=== PATIENT | male | born 1965 | race Caucasian/White ===

== ENCOUNTER 2024-06-17 02:39 | Emergency (ER) | payer MEDICARE, MEDICAID, SELFPAY ==
[2024-06-17] VITALS (43 sets, daily range): BP systolic 131–177; BP diastolic 74–99; PULSE 57–78; RESP 13–32; TEMP 37; O2SAT 89–99
--- NOTE | 2024-06-17 02:30 | DI.RAD_ITS ---
Exam(s) XR PORTABLE CHEST AP EXAM: XR PORTABLE CHEST AP CLINICAL HISTORY: short of breath TECHNIQUE: 2D digital imaging was performed. COMPARISON: No exams were available for comparison FINDINGS: LUNGS: Bilateral interstitial infiltrates, greater at the lung bases. No pleural abnormality seen. HEART: Mildly enlarged. AORTA: Normal diameter. BONES: Unremarkable for age. Soft tissues: Unremarkable. IMPRESSION: Diffuse bilateral interstitial infiltrates greater at the lung bases, suspicious for CHF. DATA REPOSITORY: RADIATION DOSE DELIVERED:
--- NOTE | 2024-06-17 02:30 | RT.EKG_ITS ---
APPROVED REPORT Exam: Resting ECG Reason for Exam: sudden onset sob Patient Location: E HR:72 bpm ECG Measurements Heart Rate 72 AXIS IA 164 P 47 QRSd 114 QRS 36 QT 421 T -27 QTc 461 Conclusion Sinus rhythm...normal P axis, V-rate 60- 99 Supraventricular bigeminy...bigeminy string>4 w/ SV complexes appropriate intervals no ST segment or T wave abnormalities to suggest occlusive [place]
--- NOTE | 2024-06-17 02:30 | DI.CT_ITS ---
Exam(s) CT CHEST PE CTA EXAM: CT CHEST PE CTA CLINICAL HISTORY: short of breath. TECHNIQUE: Imaging Protocol: Axial CT angiography was performed with multi-slice acquisition and mu lti-planar reconstructions as well as axial, coronal and sagittal MIP reconstructions. CONTRAST MATERIAL: Intravenous: Omnipaque 350 Contrast volume:100 ml COMPARISON: CR,XR XR PORTABLE CHEST AP from 06/17/2024 FINDINGS: Pulmonary Arteries: No evidence of filling defect to suggest pulmonary emboli. Tracheobronchial tree: No mucous plugging. Mediastinum and Flores: No dominant adenopathy or fluid collection. Pulmonary parenchyma: Bilateral diffuse in interlobular septal thickening consistent with pulmonary e liberty. No consolidation or dominant measurable mass. Pleura: Small bilateral pleural effusions, right greater than left. Heart: The heart is mildly dilated. Severe coronary artery calcifications are seen. Aorta: Thoracic aorta non-dilated. No dissection. Upper abdomen: Cirrhotic appearing liver. Spleen not enlarged. No ascites. Bones: Unremarkable for age. Tubes, Catheters, and Lines: None Soft tissues: Unremarkable. IMPRESSION: No evidence of pulmonary embolism. Findings consistent with CHF. Cirrhotic appearing liver. RADIATION DOSE DELIVERED: 234.55mGy.cm Total DLP DATA REPOSITORY: All CT scans at this facility are submitted to the National Radiology Data Registry (NRDR) Dose Index Registry (DIR) with the [employer] ([employer]). RADIATION OPTIMIZATION: All CT scans at this facility use at least one of these dose optimization te chniques: automated exposure control; mA and/or kV adjustment per patient size (includes targeted exa ms where dose is matched to clinical indication); or iterative reconstruction.
--- NOTE | 2024-06-17 02:45 | ED.GENADUL_ITS ---
Discharge Plan Disposition Patient Disposition: Transfer-Acute Inpatient Care Specific Acute Inpt Facility: [facility] Condition: Serious Discharge Details Clinical Impression: Non-ST elevation myocardial infarction (NSTEMI), Hypertension, Breath shortness Primary Care Provider: Pati Shahid ED Provider: Lupe Wells Home Meds and New Rx's Prescriptions: No Action simvastatin 20 mg tablet 20 mg PO DAILY docusate sodium 50 mg capsule 50 mg PO DAILY Eliquis 5 mg tablet 5 mg PO BID atenolol 50 mg tablet 50 mg PO BID meloxicam 7.5 mg tablet 7.5 mg PO DAILY tamsulosin 0.4 mg capsule 0.4 mg PO DAILY buspirone 15 mg tablet 15 mg PO BID sertraline 100 mg tablet 100 mg PO BID HPI General Mode of arrival: EMS . Date/Time Provider Initiated Documentation: 06/17/24 02:44 . Limitations to Documentation: no limitations . Information obtained by: patient, EMS and old records reviewed . HPI Narrative: 59yo M with T2DM, CAD, HTN, POP, afib, HLD, presenting for acute shortness of breath. [employer] normal yesterday including when he went to sleep. Awakened at about 0030 with severe shortness of breath. Denies chest pain, palpitations, or presyncope/syncope. No hypoxia for EMS. Pt described sensation as someone sitting on my chest. Does feel like it has gotten somewhat better over the past hour. Never felt anything like this before. Otherwise in his usual state of health with no fevers, chills, rash, nasuea, vomiting, abdominal pain, nausea, vomiting, neck pain, back pain, or other concerns. Related Data Home Medications ?Medication ?Instructions ?Recorded ?Confirmed apixaban 5 mg tablet (Eliquis) 5 mg PO BID 04/10/24 06/17/24 atenolol 50 mg tablet 50 mg PO BID 04/10/24 06/17/24 buspirone 15 mg tablet 15 mg PO BID 04/10/24 06/17/24 docusate sodium 50 mg capsule 50 mg PO DAILY 04/10/24 06/17/24 meloxicam 7.5 mg tablet 7.5 mg PO DAILY 04/10/24 06/17/24 sertraline 100 mg tablet 100 mg PO BID 04/10/24 06/17/24 simvastatin 20 mg tablet 20 mg PO DAILY 04/10/24 06/17/24 tamsulosin 0.4 mg capsule 0.4 mg PO DAILY 04/10/24 06/17/24 Allergies Allergy/AdvReac Type Severity Reaction Status Date / Time bupropion (From Wellbutrin) Allergy Severe Seizure Verified 06/17/24 02:49 aripiprazole (From Abilify) Allergy Unknown Unknown Verified 06/17/24 02:49 penicillin V potassium Allergy Unknown black outs Uncoded 06/17/24 02:49 General Stated Complaint: SOB/SuddenOnset EBONY: 3 Review of Systems Narrative: see HPI Exam Narrative Exam Narrative: General: Alert, dyspneic Head: Normocephalic, atraumatic Neck: Trachea midline, ?Neck supple. ENT: ?MMM.? Cardiac: ?Irregular, no murmurs appreciated Resp: Tachypneic. CTAB. Abd: ?Soft, non-distended, nontender : ?No suprapubic tenderness. Extremities: ?No deformities.? No peripheral edema. Neurologic: GCS 15. ? Moves all extremities freely against gravity Course Vital Signs Vital signs: Vital Signs Pulse 74 06/17/24 02:42 Respiratory Rate 20 06/17/24 02:42 Blood Pressure 177/99 H 06/17/24 02:42 Pulse Oximetry 94 06/17/24 02:42 Pulse 74 06/17/24 02:42 Respiratory Rate 20 06/17/24 02:42 Blood Pressure 177/99 H 06/17/24 02:42 Blood Pressure Position Supine 06/17/24 02:42 Pulse Oximetry 94 06/17/24 02:42 Oxygen Delivery Method Room Air 06/17/24 02:42 Oxygen Flow Rate 0 06/17/24 02:42 Pain Level 0 06/17/24 02:42 Medical Decision Making 59yo M with T2DM, CAD, HTN, POP, afib, HLD, presenting for acute shortness of breath. Awakened at about 0030 with severe shortness of breath, described someone sitting on my chest. Does feel like it has gotten somewhat better over the past hour. Hypertensive and tachypneic on arrival, dyspneic on exam with clear lungs. EKG on arrival SR, intermittent bigeminy, appropriate intervals, no ST segment or T wave abnormalities to suggest occlusive GA. High level of suspicion for acute coronary syndrome; will treat initially with 324 of ASA, SL nitro, while awaiting labs and imaging. -Symptoms improved after two nitro, resolved entirely after three. -CXR independently reviewed; some pulmonary edema on my view, agree with radiology read below. -Labs reviewed as below, CBC reassuring with no leukocytosis or anemia, CMP with no actionable abnormalities, VBG reassuring, initial troponin elevated at 196 and BNP elevated at 1103. Given heparin bolus and started on gtt for T1 NSTEMI -CT chest independently reviewed; no large saddle embolus on my view, radiology read below. Discussed with [facility] cardiology; pt accepted under Dr. Morrison for urgent (not emergent) cath anticipated later today. Will add 600mg clopidrogel and 80mg atorvastatin. Awaiting transport. Repeat EKG reassuring, NSR, no ST segment or T wave abnormalities to suggest occlusive GA. Troponin trended; 196 -> 162 -> 187. Patient remains chest pain/pressure free with no further respiratory distress. [place] expected for transport at ~0730. Oncoming physician will be made aware of patient; a follow-on note will only be written if there is a change in patient status or condition. Imaging Data Radiologic Study: Imaging: X-Ray Radiologist's impression: IMPRESSION: Bilateral interstitial opacities suspicious for edema. Denser opacities at the lung bases may reflect edema, atelectasis, infection. Follow-up as clinically warranted. Radiologic Study #2: Imaging: CT Scan Radiologist's impression: IMPRESSION: 1. No pulmonary embolus is appreciated. 2. Interstitial thickening and ground-glass opacities in both lungs consistent with edema. 3. Bilateral pleural effusions. 4. Cirrhosis. 5. Stranding in the pericholecystic fat suggesting cholecystitis. This may be further evaluated with right upper quadrant ultrasound if clinically warranted. 6. Additional findings as above. Lab Data Lab results reviewed: Yes I reviewed the patient's lab results. Labs: Laboratory Tests Range/Units 06/17/24 06/17/24 02:55 03:45 WBC (4.4-10.8) 10^3/uL 7.36 RBC (4.36-5.78) 10^6/uL 4.54 Hgb (13.5-17.5) g/dL 13.7 Hct (40.0-50.0) % 41.7 MCV (80-95) fL 92 MCH (27.0-33.0) pg 30.2 MCHC (32.0-36.0) % 32.9 RDW (11.8-14.1) % 14.8 H Plt Count (130-400) 10^3/uL 226 MPV (8.0-11.0) fL 10.0 Immature Gran % % 0.3 Neutrophils % % 68.2 Lymphocytes % % 20.2 Monocytes % % 7.6 Eosinophils % % 2.9 Basophils % % 0.8 Nucleated RBC % (0.0-0.3) % 0.0 Absolute Neutrophils (1.2-6.7) 10^3/uL 5.02 Absolute Lymphocytes (1.2-3.4) 10^3/uL 1.49 Absolute Monocytes (0.1-0.8) 10^3/uL 0.56 Absolute Eosinophils (0.0-0.7) 10^3/uL 0.21 Absolute Basophils (0.0-0.2) 10^3/uL 0.06 PT (9.1-11.1) sec 11.0 INR (0.9-1.1) 1.1 APTT (23.6-32.8) sec 25.7 VBG pH (7.31-7.41) 7.36 VBG pCO2 (41-51) mmHg 47 VBG pO2 mmHg 26 VBG HCO3 (23-28) mmol/L 26 VBG Total CO2 (24-29) mmol/L 24 VBG O2 Saturation % 41 VBG Base Excess (-2-3) mmol/L 1 Sodium (136-145) mmol/L 134 L Potassium (3.5-5.1) mmol/L 4.3 Chloride (98-107) mmol/L 100 Carbon Dioxide (21.0-32.0) mmol/L 27.5 Anion Gap (3-11) mmol/L 6.5 BUN (7-18) mg/dL 20 H Creatinine (0.70-1.30) mg/dL 1.2 Est GFR (CKD-EPI 2020) (mL/min/1.73m2) 69.23 Glucose (74-106) mg/dL 105 Calcium (8.5-10.1) mg/dL 9.2 Magnesium (1.8-2.4) mg/dL 1.9 Total Bilirubin (0.2-1.0) mg/dL 0.39 AST (15-37) U/L 34 ALT (16-63) U/L 33 Alkaline Phosphatase (46-116) U/L 77 Troponin I High Sens (4-76) ng/L 196 H* 162 H* NT-Pro-B Natriuret Pep (<300) pg/mL 1103 H Total Protein (6.4-8.2) g/dL 7.2 Albumin (3.4-5.0) g/dL 3.6 Quality:SDOH Health Related Social Needs: No Data to Display Critical Care Time Critical Care Time Critical Care Time: Yes Total Critical Care Time: 32 Attestation: Due to a high probability of clinically significant, life threatening deterioration, the patient required my highest level of preparedness to intervene emergently and I personally spent this critical care time directly and personally managing the patient. This critical care time included obtaining a history; examining the patient; pulse oximetry; ordering and review of studies; arranging urgent treatment with development of a management plan; evaluation of patient's response to treatment; frequent reassessment; and, discussions with other providers. This critical care time was performed to assess and manage the high probability of imminent, life-threatening deterioration that could result in multi-organ failure. It was exclusive of separately billable procedures and treating other patients? PFSH All Active Problems (Updated 06/17/24 @ 06:35 by Lupe Wells MD) Breath shortness (Acute) Hypertension (Chronic) Non-ST elevation myocardial infarction (NSTEMI) (Acute) Benign prostatic hyperplasia (Chronic) Type 2 diabetes mellitus treated without insulin (Acute) Obesity (Chronic) Diabetic neuropathy (Acute) Coronary artery disease (Chronic) Decreased vision (Acute) Peripheral neuropathic pain (Acute) AC joint arthropathy (Acute) Primary hypertension (Acute) Primary open angle glaucoma (POAG) of left eye, severe stage (Acute) Osteoarthritis of right hip (Acute) Cardiomyopathy (Acute) Social anxiety disorder (Acute) POP (obstructive sleep apnea) (Chronic) Anxiety (Chronic) Atrial fibrillation (Chronic) Depression (Chronic) ASCVD (arteriosclerotic cardiovascular disease) (Acute) Hyperlipidemia (Acute) Claustrophobia (Acute) Medical History (Updated 06/17/24 @ 06:35 by Lupe Wells MD) Cellulitis Dermatitis Hx of diabetic foot ulcer Penile lesion Provoked seizure Febrile Hx of atrial flutter Depression, psychotic Surgical History (Updated 04/09/24 @ 12:03 by Analy Vázquez) Hx of cardiac cath with 2 stents Hx of total knee arthroplasty Left Family History (Updated 04/09/24 @ 15:02 by Analy Vázquez) Mother No problems noted. Father No problems noted. Brother No problems noted. Maternal Grandmother No problems noted. Maternal Grandfather No problems noted. Paternal Grandmother No problems noted. Paternal Grandfather No problems noted. Social History (Updated 04/09/24 @ 14:59 by Analy Vázquez) Smoking/Tobacco Use Status: Former Tobacco Use Smokeless tobacco user: chewing tobacco Smoking risk assessment performed?: Yes Alcohol Intake: current Alcohol Intake frequency: a few times a month Alcohol type: beer Drug use: Daily Substance use type: marijuana Adopted: No Caregiver/Support person: No Household members: none Housing: apartment Number of Children: 3 number of grandchildren: 7 Communication Needs: Hard of Hearing Education Level: high school Do you need help understanding health information?: Often current occupation: Disabled Sexually active: No Do you think of yourself as: straight/heterosexual Current gender identity: male What is your relationship status?: How often do you talk on the phone with friends or family?: three or more times per week How often do you get together with friends or relatives?: never How often do you attend amish or church services?: decline to answer Do you belong to any clubs or organized social groups?: no Panel score (0-1 are the most socially isolated patients): 1 What type of physical activity do you participate in: walking Duration: 45-60 minutes/day Frequency: 3-4 times per week Vijaya/Jewish: None Special vijaya needs: No Seatbelt use: always Drive intox or ride w/intox 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
[2024-06-17] MEDS: Aspirin 81 MG CHEW 324 MG CH (02:57)
[2024-06-17 02:59] LABS: BE (Venous) 1 mmol/L (-2-3); HCO3 (Venous) 26 mmol/L (23-28); O2 Sat (Venous) 41 %; TCO2 (Venous) 24 mmol/L (24-29); pCO2 (Venous) 47 mmHg (41-51); pH (Venous) 7.36 (7.31-7.41); pO2 (Venous) 26 mmHg
[2024-06-17] MEDS: Omnipaque 350 MG/ML 100 ML BTL IJ (03:16)
[2024-06-17] MEDS: Normal Saline - Diluent 50 ML VIAL IJ (03:17)
[2024-06-17] MEDS: Normal Saline Flush 10 ML SYR IVP (03:17)
[2024-06-17 03:19] LABS: ALT 33 U/L (16-63); AST 34 U/L (15-37); Albumin 3.6 g/dL (3.4-5.0); Alkaline Phosphatase 77 U/L (46-116); Anion Gap 6.5 mmol/L (3-11); BUN 20 mg/dL (7-18); Bilirubin, Total 0.39 mg/dL (0.2-1.0); CO2 27.5 mmol/L (21.0-32.0); CREATININE 1.2 mg/dL (0.70-1.30); Calcium 9.2 mg/dL (8.5-10.1); Chloride 100 mmol/L (98-107); Estimated GFR 69.23 (mL/min/1.73m2); Glucose 105 mg/dL (74-106); Magnesium 1.9 mg/dL (1.8-2.4); Potassium 4.3 mmol/L (3.5-5.1); Sodium 134 mmol/L (136-145); Total Protein 7.2 g/dL (6.4-8.2)
[2024-06-17 03:22] LABS: Troponin I 196 ng/L (4-76)
[2024-06-17 03:23] LABS: Abs Immature Grans 0.02 10^3/uL (0.0-0.06); Absolute Basophil Count 0.06 10^3/uL (0.0-0.2); Absolute Eosinophil Count 0.21 10^3/uL (0.0-0.7); Absolute Lymphocyte Count 1.49 10^3/uL (1.2-3.4); Absolute Monocyte Count 0.56 10^3/uL (0.1-0.8); Absolute Neutrophil Count 5.02 10^3/uL (1.2-6.7); Basophils % 0.8 %; Eosinophils % 2.9 %; HCT 41.7 % (40.0-50.0); HGB 13.7 g/dL (13.5-17.5); Immature Grans % 0.3 %; Lymphocytes % 20.2 %; MCH 30.2 pg (27.0-33.0); MCHC 32.9 % (32.0-36.0); MCV 92 fL (80-95); Monocytes % 7.6 %; Neutrophils % 68.2 %; Platelet Count 226 10^3/uL (130-400); RBC 4.54 10^6/uL (4.36-5.78); RDW 14.8 % (11.8-14.1); RDW-SD 49.1 fL; WBC 7.36 10^3/uL (4.4-10.8)
[2024-06-17 03:38] LABS: NT-proBNP 1103 pg/mL (<300)
[2024-06-17] MEDS: Heparin in 0.45% NaCl 25,000 UNIT/250 ML BAG 10 UNIT IV (03:44)
--- NOTE | 2024-06-17 03:52 | DI.VRAD_ITS ---
PROCEDURE INFORMATION: Exam: XR Chest Exam date and time: 06/17/2024 3:02 AM Age: 59 years old Clinical indication: Shortness of breath; Patient HX: 1 TECHNIQUE: Imaging protocol: Radiologic exam of the chest. Views: 1 view. COMPARISON: No relevant prior studies available. FINDINGS: Lungs: Pulmonary vascular congestion. Bilateral interstitial opacities. Denser opacities at the lung bases. Pleural spaces: No large pleural effusion seen. Heart/Mediastinum: Enlarged cardiac silhouette. Bones/joints: No acute abnormality. IMPRESSION: Bilateral interstitial opacities suspicious for edema. Denser opacities at the lung bases may reflect edema, atelectasis, infection. Follow-up as clinically warranted. Dictated and Authenticated by: Caitlin Chong MD. Ordering:NALDO Andrade MD
[2024-06-17 03:57] LABS: INR 1.1 (0.9-1.1); PTT Activated 25.7 sec (23.6-32.8)
--- NOTE | 2024-06-17 04:04 | DI.VRAD_ITS ---
PROCEDURE INFORMATION: Exam: CTA Chest With Contrast Exam date and time: 06/17/2024 3:18 AM Age: 59 years old Clinical indication: Shortness of breath; Patient HX: SOB TECHNIQUE: Imaging protocol: Computed tomographic angiography of the chest with contrast. Exam focused on the arteries. 3D rendering (Not supervised by radiologist): MIP and/or 3D reconstructed images were created by the technologist. Radiation optimization: All CT scans at this facility use at least one of these dose optimization techniques: automated exposure control; mA and/or kV adjustment per patient size (includes targeted exams where dose is matched to clinical indication); or iterative reconstruction. Contrast material: OMNIPAQUE 350; Contrast volume: 100 ml; Contrast route: INTRAVENOUS (IV); COMPARISON: No relevant prior studies are available for comparison. FINDINGS: Pulmonary arteries: No pulmonary embolus is appreciated. Aorta: No thoracic aortic aneurysm seen. Arterial calcifications. Lungs: Interstitial thickening and ground-glass opacities both lungs consistent with edema. Subcentimeter right lung nodules. Follow-up per institutional protocol if prior studies do not adequately document stability. Pleural spaces: Small bilateral pleural effusions right greater than. Heart: Cardiomegaly. Lymph nodes: Nonspecific mediastinal lymph nodes. Bilateral hilar lymphadenopathy. Liver: Cirrhotic liver. Gallbladder and biliary ducts: Stranding in the pericholecystic fat. Spleen: Splenic calcifications. Adrenal glands: Nodular left adrenal thickening. Bones/joints: Rib deformities appear nonacute. Soft tissues: No acute pertinent abnormality seen. IMPRESSION: 1. No pulmonary embolus is appreciated. 2. Interstitial thickening and ground-glass opacities in both lungs consistent with edema. 3. Bilateral pleural effusions. 4. Cirrhosis. 5. Stranding in the pericholecystic fat suggesting cholecystitis. This may be further evaluated with right upper quadrant ultrasound if clinically warranted. 6. Additional findings as above. Dictated and Authenticated by: Caitlin Chong MD. Ordering:NALDO Andrade MD
[2024-06-17] MEDS: Clopidogrel 300 MG TAB 600 MG PO (04:08)
[2024-06-17] MEDS: Atorvastatin 40 MG TAB 80 MG PO (04:08)
[2024-06-17 04:10] LABS: Troponin I 162 ng/L (4-76)
--- NOTE | 2024-06-17 06:00 | RT.EKG_ITS ---
APPROVED REPORT Exam: Resting ECG Reason for Exam: repeat, prior chest pain Patient Location: E HR:60 bpm ECG Measurements Heart Rate 60 AXIS MD 158 P 54 QRSd 113 QRS 20 QT 448 T -30 QTc 447 Conclusion Sinus rhythm...normal P axis, V-rate 60- [address] segment or T wave abnormalities to suggest occlusive [place]
[2024-06-17 06:21] LABS: Troponin I 187 ng/L (4-76)
== END 2024-06-17 07:30 | disposition short-term general hospital (02) ==
PROVIDERS: Emergency Provider Student in an Organized Health Care Education/Training Program; PCP Nurse Practitioner Family
DX: R06.02 Shortness of breath (principal); I21.4 Non-ST elevation (NSTEMI) myocardial infarction; I10 Essential (primary) hypertension
CPT/HCPCS: 36415; 71275; 80053; 82805; 93005; 96365; 99291; 71045; 83735; 83880; 84484; 85025; 85610; 85730; 93010; J1644; J3490

== ENCOUNTER 2024-07-04 11:37 | Outpatient (RCR) | payer MEDICARE, MEDICAID, SELFPAY | END 2024-07-08 23:59 | disposition home or self-care (01) | LOC: CR 11:37 | PROVIDERS: PCP Nurse Practitioner Family; Visit Provider Internal Medicine Cardiovascular Disease | DX: I21.9 Acute myocardial infarction, unspecified (principal) ==

== ENCOUNTER 2024-08-23 11:23 | Outpatient (RCR) | payer MEDICARE, MEDICAID, SELFPAY ==
--- NOTE | 2024-08-23 11:30 | RT.EKG_ITS ---
APPROVED REPORT Exam: Resting ECG Reason for Exam: Baseline Patient Location: O HR:74 bpm ECG Measurements Heart Rate 74 AXIS DC 148 P 65 QRSd 115 QRS 29 QT 405 T 60 QTc 450 Conclusion Sinus rhythm...normal P axis, V-rate 50- 99 Inferior infarct, old...Q >35mS, II III aVF
== END 2024-09-07 23:59 | disposition home or self-care (01) ==
LOC: CR 11:23
PROVIDERS: PCP Nurse Practitioner Family; Visit Provider Internal Medicine Cardiovascular Disease
DX: I25.810 Atherosclerosis of coronary artery bypass graft(s) without angina pectoris (principal); Z51.89 Encounter for other specified aftercare
CPT/HCPCS: S9472

== ENCOUNTER 2024-08-26 10:44 | Emergency (ER) | payer MEDICARE, MEDICAID, SELFPAY ==
[2024-08-26 10:48] VITALS: BP 146/91; PULSE 102; RESP 17; TEMP 36.3; O2SAT 99
[2024-08-26 11:07] VITALS: BP 146/91; PULSE 102; RESP 17; TEMP 36.3; O2SAT 99
--- NOTE | 2024-08-26 11:30 | DI.US_ITS ---
Exam(s) US LOWER EXTREMITY VENOUS RT EXAM: US LOWER EXTREMITY VENOUS RT CLINICAL HISTORY: Right lower extremity swelling TECHNIQUE: Grayscale, color, and doppler imaging of the deep venous system of the RIGHT lower extrem ity was performed. COMPARISON: No exams were available for comparison FINDINGS: There is no evidence of intraluminal thrombus and there is normal compression and augmentation demons trated within the common femoral vein, femoral vein, and popliteal vein. In the ipsilateral calf the interrogated veins also exhibit normal compression/ augmentation properti es. The ipsilateral saphenofemoral junction is patent. There is a Pena cyst in the popliteal fossa which measures 3.4 x 0.6 x 2.7 cm IMPRESSION: 1. No evidence of DVT in the RIGHT lower extremity. 2. Pena cyst in the popliteal fossa with measurements as above. DATA REPOSITORY:
[2024-08-26 11:47] LABS: Abs Immature Grans 0.02 10^3/uL (0.0-0.06); Absolute Basophil Count 0.03 10^3/uL (0.0-0.2); Absolute Eosinophil Count 0.08 10^3/uL (0.0-0.7); Absolute Lymphocyte Count 1.22 10^3/uL (1.2-3.4); Absolute Monocyte Count 0.59 10^3/uL (0.1-0.8); Absolute Neutrophil Count 4.07 10^3/uL (1.2-6.7); Basophils % 0.5 %; Eosinophils % 1.3 %; HGB 13.1 g/dL (13.5-17.5); Immature Grans % 0.3 %; Lymphocytes % 20.3 %; MCH 28.4 pg (27.0-33.0); MCHC 32.8 % (32.0-36.0); MCV 87 fL (80-95); MPV 8.9 fL (8.0-11.0); Monocytes % 9.8 %; Neutrophils % 67.8 %; Platelet Count 249 10^3/uL (130-400); RBC 4.61 10^6/uL (4.36-5.78); RDW 14.3 % (11.8-14.1); RDW-SD 45.2 fL; WBC 6.01 10^3/uL (4.4-10.8)
[2024-08-26 11:58] LABS: Anion Gap 9.3 mmol/L (3-11); BUN 14 mg/dL (7-18); CO2 24.7 mmol/L (21.0-32.0); CREATININE 1.1 mg/dL (0.70-1.30); Calcium 9.2 mg/dL (8.5-10.1); Chloride 106 mmol/L (98-107); Estimated GFR 76.85 (mL/min/1.73m2); Glucose 107 mg/dL (74-106); Potassium 3.9 mmol/L (3.5-5.1); Sodium 140 mmol/L (136-145)
[2024-08-26 12:53] VITALS: BP 160/103; PULSE 102; RESP 17; O2SAT 98
[2024-08-26] MEDS: Furosemide 20 MG TAB 80 MG PO (13:16)
--- NOTE | 2024-08-26 13:28 | ED.GENADUL_ITS ---
Discharge Plan Disposition Patient Disposition: Home Discharge Details Clinical Impression: Localized swelling of both lower legs, Synovial cyst of popliteal space [Pena], right knee Primary Care Provider: Pati Shahid ED Provider: Stewart Rider [place] Meds and New Rx's Prescriptions: Continued docusate sodium 50 mg capsule 50 mg PO DAILY meloxicam 7.5 mg tablet 7.5 mg PO DAILY No Action Eliquis 5 mg tablet 5 mg PO BID Qty: 180 3RF atorvastatin 80 mg tablet 80 mg PO QHS Qty: 90 3RF buspirone 15 mg tablet 15 mg PO BID Qty: 180 3RF clopidogrel 75 mg tablet 75 mg PO DAILY Qty: 90 1RF furosemide 20 mg tablet 20 mg PO QAM Qty: 90 1RF losartan 100 mg tablet 100 mg PO DAILY Qty: 90 1RF metoprolol tartrate 25 mg tablet 12.5 mg PO BID Qty: 90 1RF potassium chloride 20 mEq tablet extended release 20 meq PO DAILY Qty: 90 3RF sertraline 100 mg tablet 100 mg PO DAILY Qty: 90 3RF tamsulosin 0.4 mg capsule 0.4 mg PO DAILY Qty: 90 3RF Eucerin Advanced Repair Cream 1 applic topical DAILY Qty: 454 1RF Rx Instructions: Apply to bilateral feet nightly Discharge Instructions Additional Instructions: You are seen in the emergency department for your leg pain. This may be a component of difficulties with your heart for which you are receiving a diuretic pill. As we discussed please follow-up with your primary care provider tomorrow. Please turn to the emergency department if you develop shortness of breath chest pain or take any falls. Please also return if you develop fevers. Discharge Data Discharge Date/Time-TO BE ENTERED AT DEPARTURE: 08/26/24 13:42 HPI General Date/Time Provider Initiated Documentation: 08/26/24 11:15 . HPI Narrative: MDM This is an overall very well appearing afebrile and mildly tachycardic 5-year-old male with recent CABG and bilateral lower extremity swelling right greater than left concerning for the possibility of early volume overload for which patient will receive furosemide orally with outpatient PCP follow-up tomorrow. I spoke with the patient's PCP, Pati Bocanegra. I advised that my suspicion was low for cellulitis as patient had some left-sided leg swelling as well.?Less likely lipodermatosclerosis given no woody texture and no history of venous insufficiency. Less likely contact dermatitis given lack of external exposure to any allergens and contact irritants.? Less likely dermatohypersensitivity reaction given no recent drugs, viruses, nor insect exposures.? Unlikely cryptococcal cellulitis as patient does not have HIV.? Reassuring electrolytes and renal function so my suspicion is low for calciphylaxis. No pain out of proportion to suggest necrotizing soft tissue infection. Patient did be mildly decreased EF on echo at [facility] 2 [place] ago. It is certainly possible that he may have early heart failure however he is not feeling short of breath nor is he hypoxic so I did not feel that he required hospitalization for an updated echocardiogram. No fevers and no significant erythema so my suspicion is low for cellulitis I did not treat the patient empirically with antibiotics. Reassuring normal calcium. No ALTAF. I considered DVT however patient did have some contralateral lower extremity swelling and no palpable cords and is on apixaban so my suspicion is low for DVT. Nonetheless I completed an ultrasound which did show that the patient had a Bakers cyst. It is is certainly possible that this Pena's cyst worsened his bilateral lower extremity swelling on the right greater than left. Patient was mildly tachycardic in the emergency department. His med rec from [facility] shows that he supposed to be on metoprolol. He denies taking metoprolol and he is not on his diuretic. He received 80 mg of oral furosemide in the ED. Right foot warm well-perfused so I am not suspicious for critical limb ischemia so I do not feel that the patient requires CT angiogram with runoffs as my suspicion is exceedingly low for critical limb ischemia. Patient and I discussed that he should return to the emergency department if he developed worsening pain any numbness or tingling in his foot or if he had any difficulty breathing. He understood his return indications and was discharged with empiric trial of expectant outpatient management. Repeat heart rate within normal limits. HPI This is a 67-year-old male with recent history of CABG arriving to the emergency department via private vehicle in setting of right lower extremity swelling. Patient notes over the past several days he has had worsening right lower extremity swelling. He has not taken any falls. He denies any shortness of breath. He does sleep at baseline using 3 pillows but has not been sleeping in a recliner. He has no history of PEs or DVTs. He denies chest pain. No recent new medications. Exam General: Well-appearing in no acute distress speaking in complete sentences. Head: Normocephalic, atraumatic. Eye: Extraocular eye movements intact. No conjunctival injection. No scleral icterus. Ear, nose, mouth, throat: Grossly normal inspection. Normal voice, handling secretions normally. Neck: Trachea midline. Cardiovascular: Well-perfused distal extremities. Respiratory: Nonlabored respiration. Clear lungs bilaterally. Gastrointestinal: Nondistended abdomen. Musculoskeletal: Bilateral 2+ pitting lower extremity edema right greater than left. Mild bilateral lower extremity erythema. Bilateral 2+ PT and DP pulses. Sensation motor function intact in the feet where there is 5 out of 5 bilateral strength in dorsi and plantarflexion. Skin: Normal for age and race, grossly normal temperature and turgor. No acute rash. Neurologic: Alert and appropriate, no apparent acute deficits. GCS 15. Psychiatric: Mood and manner are appropriate. Grooming and personal hygiene are appropriate. Related Data Home Medications ?Medication ?Instructions ?Recorded ?Confirmed docusate sodium 50 mg capsule 50 mg PO DAILY 04/10/24 08/26/24 meloxicam 7.5 mg tablet 7.5 mg PO DAILY 04/10/24 08/26/24 apixaban 5 mg tablet (Eliquis) 5 mg PO BID #180 tabs 08/27/24 08/27/24 atorvastatin 80 mg tablet 80 mg PO QHS #90 tabs 08/27/24 08/27/24 buspirone 15 mg tablet 15 mg PO BID #180 tabs 08/27/24 08/27/24 clopidogrel 75 mg tablet 75 mg PO DAILY #90 tabs 08/27/24 08/27/24 emollient combination no.[id number] 1 applic topical DAILY #454 grams 08/27/24 08/27/24 (Eucerin Advanced Repair topical cream) furosemide 20 mg tablet 20 mg PO QAM #90 tabs 08/27/24 08/27/24 losartan 100 mg tablet 100 mg PO DAILY #90 tabs 08/27/24 08/27/24 metoprolol tartrate 25 mg tablet 12.5 mg (1/2 x 25 mg) PO BID #90 08/27/24 08/27/24 tabs potassium chloride 20 mEq 20 meq PO DAILY #90 tabs 08/27/24 08/27/24 tablet,extended release sertraline 100 mg tablet 100 mg PO DAILY #90 tabs 08/27/24 08/27/24 tamsulosin 0.4 mg capsule 0.4 mg PO DAILY #90 caps 08/27/24 08/27/24 Previous Rx's ?Medication ?Instructions ?Recorded apixaban 5 mg tablet (Eliquis) 5 mg PO BID #180 tabs 08/27/24 atorvastatin 80 mg tablet 80 mg PO QHS #90 tabs 08/27/24 buspirone 15 mg tablet 15 mg PO BID #180 tabs 08/27/24 clopidogrel 75 mg tablet 75 mg PO DAILY #90 tabs 08/27/24 emollient combination no.[id number] 1 applic topical DAILY #454 grams 08/27/24 (Eucerin Advanced Repair topical cream) furosemide 20 mg tablet 20 mg PO QAM #90 tabs 08/27/24 losartan 100 mg tablet 100 mg PO DAILY #90 tabs 08/27/24 metoprolol tartrate 25 mg tablet 12.5 mg (1/2 x 25 mg) PO BID #90 08/27/24 tabs potassium chloride 20 mEq 20 meq PO DAILY #90 tabs 08/27/24 tablet,extended release sertraline 100 mg tablet 100 mg PO DAILY #90 tabs 08/27/24 tamsulosin 0.4 mg capsule 0.4 mg PO DAILY #90 caps 08/27/24 Allergies Allergy/AdvReac Type Severity Reaction Status Date / Time bupropion (From Wellbutrin) Allergy Severe Seizure Verified 08/27/24 13:05 aripiprazole (From Abilify) Allergy Unknown Unknown Verified 08/27/24 13:05 penicillin V potassium Allergy Unknown black outs Uncoded 08/27/24 13:05 General Stated Complaint: Cellulitis EBONY: 4 Course Vital Signs Vital signs: Vital Signs Temperature 36.3 C L 08/26/24 11:07 Pulse 102 H 08/26/24 11:07 Respiratory Rate 17 08/26/24 11:07 Blood Pressure 146/91 H 08/26/24 11:07 Pulse Oximetry 99 08/26/24 11:07 Temperature 36.3 C L 08/26/24 11:07 Temperature Source Oral 08/26/24 11:07 Pulse 102 H 08/26/24 12:53 Pulse Rhythm Regular 08/26/24 12:53 Pulse Strength Normal 08/26/24 12:53 Respiratory Rate 17 08/26/24 12:53 Respiratory Effort Normal, Short of Breath 08/26/24 12:53 Respiratory Depth Normal 08/26/24 12:53 Blood Pressure 160/103 H 08/26/24 12:53 Blood Pressure Mean 122 08/26/24 12:53 Blood Pressure Position Sitting 08/26/24 12:53 Pulse Oximetry 98 08/26/24 12:53 Oxygen Delivery Method Room Air 08/26/24 12:53 Oxygen Flow Rate 0 08/26/24 12:53 Pain Level 6 08/26/24 11:07 Lab/Test Results Lab/Test Results: Laboratory Tests Range/Units 08/26/24 11:40 WBC (4.4-10.8) 10^3/uL 6.01 RBC (4.36-5.78) 10^6/uL 4.61 Hgb (13.5-17.5) g/dL 13.1 L Hct (40.0-50.0) % 40.0 MCV (80-95) fL 87 MCH (27.0-33.0) pg 28.4 MCHC (32.0-36.0) % 32.8 RDW (11.8-14.1) % 14.3 H Plt Count (130-400) 10^3/uL 249 MPV (8.0-11.0) fL 8.9 Immature Gran % % 0.3 Neutrophils % % 67.8 Lymphocytes % % 20.3 Monocytes % % 9.8 Eosinophils % % 1.3 Basophils % % 0.5 Nucleated RBC % (0.0-0.3) % 0.0 Absolute Neutrophils (1.2-6.7) 10^3/uL 4.07 Absolute Lymphocytes (1.2-3.4) 10^3/uL 1.22 Absolute Monocytes (0.1-0.8) 10^3/uL 0.59 Absolute Eosinophils (0.0-0.7) 10^3/uL 0.08 Absolute Basophils (0.0-0.2) 10^3/uL 0.03 Sodium (136-145) mmol/L 140 Potassium (3.5-5.1) mmol/L 3.9 Chloride (98-107) mmol/L 106 Carbon Dioxide (21.0-32.0) mmol/L 24.7 Anion Gap (3-11) mmol/L 9.3 BUN (7-18) mg/dL 14 Creatinine (0.70-1.30) mg/dL 1.1 Est GFR (CKD-EPI 2020) (mL/min/1.73m2) 76.85 Glucose (74-106) mg/dL 107 H Calcium (8.5-10.1) mg/dL 9.2 Medical Decision Making Quality:[facility] Health Related Social Needs: No Data to Display PFSH All Active Problems (Updated 08/27/24 @ 13:38 by Pati Shahid NP) Onychomycosis (Acute) Eczema of foot (Acute) Synovial cyst of popliteal space [Pena], right knee (Acute) Localized swelling of both lower legs (Acute) Myocardial infarct (Chronic) 06/17/24 type 1 RH Hx of CABG (Chronic) [facility]/p acute [place] 06/17/24, MAZE procedue with RUPINDER clipRH Benign prostatic hyperplasia (Chronic) Type 2 diabetes mellitus treated without insulin (Acute) Obesity (Chronic) Diabetic neuropathy (Acute) Coronary artery disease (Chronic) Decreased vision (Acute) Peripheral neuropathic pain (Acute) AC joint arthropathy (Acute) Primary hypertension (Acute) Primary open angle glaucoma (POAG) of left eye, severe stage (Acute) Osteoarthritis of right hip (Acute) Cardiomyopathy (Acute) Social anxiety disorder (Acute) POP (obstructive sleep apnea) (Chronic) Anxiety (Chronic) Atrial fibrillation (Chronic) Depression (Chronic) ASCVD (arteriosclerotic cardiovascular disease) (Acute) Hyperlipidemia (Acute) Claustrophobia (Acute) Medical History (Updated 08/27/24 @ 13:38 by Pati Shahid NP) Cellulitis Dermatitis Hx of diabetic foot ulcer Penile lesion Provoked seizure Febrile Hx of atrial flutter Depression, psychotic Surgical History (Updated 07/25/24 @ 15:29 by Jose Lewis RN) Hx of cardiac cath with 2 stents Hx of total knee arthroplasty Left Family History (Updated 04/09/24 @ 15:02 by Analy Vázquez) Mother No problems noted. Father No problems noted. Brother No problems noted. Maternal Grandmother No problems noted. Maternal Grandfather No problems noted. Paternal Grandmother No problems noted. Paternal Grandfather No problems noted. Social History (Updated 04/09/24 @ 14:59 by Analy Vázquez) Smoking/Tobacco Use Status: Former Tobacco Use Smokeless tobacco user: chewing tobacco Smoking risk assessment performed?: Yes Alcohol Intake: current Alcohol Intake frequency: a few times a month Alcohol type: beer Drug use: Daily Substance use type: marijuana Adopted: No Caregiver/Support person: No Household members: none Housing: apartment Number of Children: 3 number of grandchildren: 7 Communication Needs: Hard of Hearing Education Level: high school Do you need help understanding health information?: Often current occupation: Disabled Sexually active: No Do you think of yourself as: straight/heterosexual Current gender identity: male What is your relationship status?: How often do you talk on the phone with friends or family?: three or more times per week How often do you get together with friends or relatives?: never How often do you attend oriental orthodox or evangelical services?: decline to answer Do you belong to any clubs or organized social groups?: no Panel score (0-1 are the most socially isolated patients): 1 What type of physical activity do you participate in: walking Duration: 45-60 minutes/day Frequency: 3-4 times per week Vijaya/Sabianism: None Special vijaya needs: No Seatbelt use: always Drive intox or ride w/intox emergency medical technician/driver: No Firearms in home: No Do you feel safe at home: Yes Do you feel safe in your relationship?: Yes Victim of physical abuse: No Victim of emotional abuse: No Victim of sexual abuse: No Would you like helpful sources: No PAWSS Have you Been Recently Intoxicated or Drunk Within the Last 30 days?: No Have you Ever Experienced Previous Episodes of Alcohol Withdrawal?: No Have you ever Experienced Withdrawal Seizures?: No Have you ever Experienced Delirium Tremens(DT)s?: No Have you ever undergone Alcohol Rehabilitation Treatment (i.e, inpt ot outpatient treatment programs)?: No Have you ever Experienced Blackouts?: No Have you ever Combined Alcohol with other Downers within the last 90 days?: No Have you ever Combined Alcohol with any other Substance of Abuse during the last 90 days?: No Positive Blood Alcohol level on Presentation? [PCS.BAL]: No Evidence of Increased Autonomic Activity (i.e. HR>120, tremor, sweating, agitation, nausea)?: No Result: 0
[2024-08-26 13:49] VITALS: BP 146/95; PULSE 98; RESP 18; TEMP 36.6; O2SAT 99
== END 2024-08-26 13:42 | disposition home or self-care (01) ==
PROVIDERS: Emergency Provider Emergency Medicine; PCP Nurse Practitioner Family
DX: R22.43 Localized swelling, mass and lump, lower limb, bilateral (principal); M71.21 Synovial cyst of popliteal space [Baker], right knee; Z95.1 Presence of aortocoronary bypass graft; I10 Essential (primary) hypertension
CPT/HCPCS: 36415; 80048; 99284; 85025; 93971; 99283

== ENCOUNTER 2024-09-02 08:12 | Outpatient (CLI) | payer MEDICARE, MEDICAID, SELFPAY | END 2024-09-02 08:13 | disposition home or self-care (01) | LOC: DI.CARD 08:13 | PROVIDERS: PCP Nurse Practitioner Family; Visit Provider Registered Nurse | CPT/HCPCS: 93010 ==

== ENCOUNTER 2025-03-27 22:25 | Emergency (ER) | payer MEDICARE, MEDICAID, SELFPAY ==
[2025-03-27] VITALS (16 sets, daily range): BP systolic 138–148; BP diastolic 74–124; PULSE 70–78; RESP 10–22; TEMP 36.7; O2SAT 97–100
--- NOTE | 2025-03-27 22:15 | DI.RAD_ITS ---
Exam(s) XR CHEST 1V IN DI DEPT EXAM: XR CHEST 1V IN DI DEPT CLINICAL HISTORY: AMS/fall TECHNIQUE: 2D digital imaging was performed. COMPARISON: CT CT CHEST PE CTA from 06/17/2024 FINDINGS: Overlying monitoring leads. LUNGS: Clear. No pleural abnormality seen. HEART: No enlarged. Left atrial appendage occlusion device noted. Mediastinal clips. AORTA: Normal diameter. BONES: Unremarkable for age. Sternal wires. Soft tissues: Unremarkable. IMPRESSION: No acute findings. The preliminary [facility] report was reviewed. DATA REPOSITORY: RADIATION DOSE DELIVERED:
--- NOTE | 2025-03-27 22:15 | DI.RAD_ITS ---
Exam(s) XR PELVIS AP EXAM: XR PELVIS AP CLINICAL HISTORY: AMS/fall. TECHNIQUE: 2D digital imaging was performed. Single AP view. COMPARISON: No exams were available for comparison FINDINGS: BONES: No acute fracture is present. No bony destructive lesion is seen. Enthesophytes at the iliac wings. Chronic appearing deformity of the upper sacrum. JOINTS: No dislocation present. No joint space narrowing is present. Acetabular spurring. Degenerative changes are present at the SI joints. SOFT TISSUE: Normal. IMPRESSION: No acute abnormality. The preliminary [facility] report was reviewed. DATA REPOSITORY: RADIATION DOSE DELIVERED:
--- NOTE | 2025-03-27 22:18 | W.ED.GENAD ---
Discharge Plan Disposition Patient Disposition: Home Condition: Good Discharge Details Clinical Impression: Alcohol intoxication, Fall, Abrasion, multiple sites Primary Care Provider: Pati Shahid ED Provider: Kenrick Godinez and Leo Rx's Prescriptions: Continued Eliquis 5 mg tablet 5 mg PO BID Qty: 180 3RF atorvastatin 80 mg tablet 80 mg PO QHS Qty: 90 3RF buspirone 15 mg tablet 15 mg PO BID Qty: 180 3RF potassium chloride 20 mEq tablet extended release 20 meq PO DAILY Qty: 90 3RF sertraline 100 mg tablet 100 mg PO DAILY Qty: 90 3RF tamsulosin 0.4 mg capsule 0.4 mg PO DAILY Qty: 90 3RF Eucerin Advanced Repair Cream 1 applic topical DAILY Qty: 454 1RF Rx Instructions: Apply to bilateral feet nightly docusate sodium 50 mg capsule 50 mg PO DAILY meloxicam 7.5 mg tablet 7.5 mg PO DAILY furosemide 20 mg tablet 20 mg PO QAM Qty: 90 1RF clopidogrel 75 mg tablet 75 mg PO DAILY Qty: 90 1RF losartan 100 mg tablet 100 mg PO DAILY Qty: 90 1RF metoprolol tartrate 25 mg tablet 12.5 mg PO BID Qty: 90 1RF Discharge Instructions Instructions: Abrasions ED, Alcohol Intoxication ED Additional Instructions: You were seen in the ED after presumed fall associated with alcohol use. Imaging and labs are reassuring and you were held in the ED overnight for sobriety. You have an abrasion on your face and your arm that you should keep clean and apply antibiotic ointment to encourage healing. Follow-up with primary care as needed. Return to ED for any severe worsening headache, neurologic change, other concerns. Referrals: Pati Shahid NP [Primary Care Provider, Medicine] [facility] General Mode of arrival: EMS. Date/Time Provider Initiated Documentation: 03/27/25 22:29. Limitations to Documentation: no limitations. Information obtained by: EMS, RN notes reviewed and old records reviewed. HPI Narrative: Patient brought in the ED after he was found in a parking lot on the ground altered. Multiple cans of beer empty and full found with him. Unable to provide any type of history. Police attempted to breathalyzed him in the field but he was unable to cooperate. He does open his eyes to verbal stimuli. He does not answer questions or speak. His old records show that he is on Eliquis for history of A-fib. 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 He is moving all 4 extremities. He does have some blood noted right side of his face. He is in a collar. Fingerstick in the field was normal. Related Data Home Medications ?Medication ?Instructions ?Recorded ?Confirmed docusate sodium 50 mg capsule 50 mg PO DAILY 04/10/24 03/27/25 meloxicam 7.5 mg tablet 7.5 mg PO DAILY 04/10/24 03/27/25 apixaban 5 mg tablet (Eliquis) 5 mg PO BID #180 tabs 08/27/24 03/27/25 atorvastatin 80 mg tablet 80 mg PO QHS #90 tabs 08/27/24 03/27/25 buspirone 15 mg tablet 15 mg PO BID #180 tabs 08/27/24 03/27/25 emollient combination no.119 1 applic topical DAILY #454 grams 08/27/24 03/27/25 (Eucerin Advanced Repair topical cream) potassium chloride 20 mEq 20 meq PO DAILY #90 tabs 08/27/24 03/27/25 tablet,extended release sertraline 100 mg tablet 100 mg PO DAILY #90 tabs 08/27/24 03/27/25 tamsulosin 0.4 mg capsule 0.4 mg PO DAILY #90 caps 08/27/24 03/27/25 clopidogrel 75 mg tablet 75 mg PO DAILY #90 tabs 03/07/25 03/27/25 furosemide 20 mg tablet 20 mg PO QAM #90 tabs 03/07/25 03/27/25 losartan 100 mg tablet 100 mg PO DAILY #90 tabs 03/07/25 03/27/25 metoprolol tartrate 25 mg tablet 12.5 mg (1/2 x 25 mg) PO BID #90 03/07/25 03/27/25 tabs Previous Rx's ?Medication ?Instructions ?Recorded apixaban 5 mg tablet (Eliquis) 5 mg PO BID #180 tabs 08/27/24 atorvastatin 80 mg tablet 80 mg PO QHS #90 tabs 08/27/24 buspirone 15 mg tablet 15 mg PO BID #180 tabs 08/27/24 emollient combination no.119 1 applic topical DAILY #454 grams 08/27/24 (Eucerin Advanced Repair topical cream) potassium chloride 20 mEq 20 meq PO DAILY #90 tabs 08/27/24 tablet,extended release sertraline 100 mg tablet 100 mg PO DAILY #90 tabs 08/27/24 tamsulosin 0.4 mg capsule 0.4 mg PO DAILY #90 caps 08/27/24 clopidogrel 75 mg tablet 75 mg PO DAILY #90 tabs 03/07/25 furosemide 20 mg tablet 20 mg PO QAM #90 tabs 03/07/25 losartan 100 mg tablet 100 mg PO DAILY #90 tabs 03/07/25 metoprolol tartrate 25 mg tablet 12.5 mg (1/2 x 25 mg) PO BID #90 03/07/25 tabs Allergies Allergy/AdvReac Type Severity Reaction Status Date / Time bupropion (From Wellbutrin) Allergy Severe Seizure Verified 03/27/25 22:31 aripiprazole (From Abilify) Allergy Unknown Unknown Verified 03/27/25 22:31 penicillin V potassium Allergy Unknown black outs Uncoded 03/27/25 22:31 General EBONY: 4 Exam Narrative Exam Narrative: Gen: WDWN male in NAD. He is collared. VS per triage. HENT: NC. Superficial laceration/abrasion to right lateral upper lid. No face tenderness. Eyes: PERRL and EOMI. Neck: Trachea midline. Chest: Normal breathing with clear and equal BS. Chest wall NT. CV: RRR w/o murmur. Good distal pulses. Abd: S/ND/NT. Neuro: Awake, opens eyes to verbal command but does not answer questions. CN II-XII intact. No gross motor or sensory deficit. Ext: No deformity or tenderness. Normal ROM. Skin: Warm and dry. Abrasion to right forearm. Medical Decision Making Patient found down in a parking lot by passerby. Presumed fall with alcohol intoxication by history, however, records indicate patient is supposed to be on Eliquis. Fingerstick in the field was normal. He opens his eyes to command and is cooperative but is not speaking. He has abrasion to his right arm and right upper eyelid. Does not appear to have any bony deformity or tenderness. IV is in place. Will draw labs and start fluids. Will obtain CT head and cervical spine, 1 view chest, 1 view pelvis. EKG and monitor while here. 00:30 - Patient's EKG is sinus rhythm with no acute ST changes and unchanged from previous per my read. Laboratory studies are unremarkable other than an alcohol level of 262. CBC, chemistry, kidney function, liver function without concerning findings. Troponin x 2 normal and unchanged. Urinalysis negative. CT head and cervical spine per preliminary radiology report are negative for acute traumatic injury. Plan to obs till sobriety. 05:45 - Patient is awake, alert and coherent this morning. He has no complaints and would like to be discharged. Abrasions have been cleaned up. He is encouraged to apply antibiotic ointment to help with the healing. He may follow-up with primary care as needed. Return precautions provided. Medical Records Medical records reviewed: Yes I reviewed the patient's medical records. Lab Data Lab results reviewed: Yes I reviewed the patient's lab results. Lab results narrative: see MDM ECG Data Attestation: I personally reviewed and interpreted this ECG (s) as follows: Prior ECG tracings: available for review Interpretation: see EKG/MDM [facility] All Active Problems (Updated 03/28/25 @ 05:50 by Kenrick Godinez MD) Abrasion, multiple sites (Acute) Fall (Acute) Alcohol intoxication (Acute) Penile lesion (Acute) Onychomycosis (Acute) Eczema of foot (Acute) Obesity (Chronic) Diabetic neuropathy (Acute) Decreased vision (Acute) Peripheral neuropathic pain (Acute) AC joint arthropathy (Acute) Primary open angle glaucoma (POAG) of left eye, severe stage (Acute) Osteoarthritis of right hip (Acute) Social anxiety disorder (Acute) Anxiety (Chronic) Claustrophobia (Acute) Medical History Primary hypertension Depression Hyperlipidemia Atrial fibrillation POP (obstructive sleep apnea) Cardiomyopathy Type 2 diabetes mellitus treated without insulin Benign prostatic hyperplasia Myocardial infarct 06/17/24 type 1 RH Hx of diabetic foot ulcer Provoked seizure Febrile Surgical History [place] [facility] [place]p [place] 06/17/24, MAZE procedue with RUPINDER clipRH Hx of cardiac cath with 2 stents Hx of total knee arthroplasty Left Family History (Updated 04/09/24 @ 15:02 by Analy Vázquez) Mother No problems noted. Father No problems noted. Brother No problems noted. Maternal Grandmother No problems noted. Maternal Grandfather No problems noted. Paternal Grandmother No problems noted. Paternal Grandfather No problems noted. Social History Smoking/Tobacco Use Status: Former Tobacco Use Smokeless tobacco user: chewing tobacco Smoking risk assessment performed?: Yes Alcohol Intake: current Alcohol Intake frequency: a few times a month Alcohol type: beer Drug use: Daily Substance use type: marijuana Adopted: No Caregiver/Support person: No Household members: none Housing: apartment Number of Children: 3 number of grandchildren: 7 Communication Needs: Hard of Hearing Education Level: high school Do you need help understanding health information?: Often current occupation: Disabled Sexually active: No Do you think of yourself as: straight/heterosexual Current gender identity: male What is your relationship status?: How often do you talk on the phone with friends or family?: three or more times per week How often do you get together with friends or relatives?: never How often do you attend amish or amish services?: decline to answer Do you belong to any clubs or organized social groups?: no Panel score (0-1 are the most socially isolated patients): 1 What type of physical activity do you participate in: walking Duration: 45-60 minutes/day Frequency: 3-4 times per week Vijaya/Synagogue: None Special vijaya needs: No Seatbelt use: always Drive intox or ride w/intox minibus driver: No Firearms in home: No Do you feel safe at home: Yes Do you feel safe in your relationship?: Yes Victim of physical abuse: No Victim of emotional abuse: No Victim of sexual abuse: No Would you like helpful sources: No
--- NOTE | 2025-03-27 22:30 | DI.CT_ITS ---
Exam(s) CT HEAD CERVICAL SPINE WO EXAM: CT HEAD CERVICAL SPINE WO CLINICAL HISTORY: AMS/fall/head injury. TECHNIQUE: Imaging Protocol: Axial computed tomography images with coronal and sagittal reformatted images were created and reviewed COMPARISON: No exams were available for comparison FINDINGS: Head CT Ventricles and Extra axial spaces: Normal in size and morphology for the patient's age. Hemorrhage: None. Cerebral parenchyma: No evidence of mass or acute infarct. Midline shift: None. Brainstem/Cerebellum: Normal. Calvarium: Normal. Visualized Paranasal sinuses/Mastoids: Complete opacification of the left maxillary sinus with mild expansion indicating chronicity. Remaining sinuses and mastoid air cells are clear. Soft tissues: Unremarkable. Cervical Spine CT BONES: Vertebral body heights are maintained. Alignment is normal. There is no evidence of acute fracture. Degenerative disc changes and facet degenerative changes are seen, causing bilateral neural foraminal narrowing. SOFT TISSUES: No paraspinal hematoma. The airway appears intact. No pneumothorax is seen at the lung apices. Chronic posterior soft tissue calcification. IMPRESSION: Head CT: No acute abnormality. Severe chronic right maxillary sinus disease. C-spine CT: Degenerative changes, no acute abnormality. The preliminary [facility] report was reviewed. RADIATION DOSE DELIVERED: 1,440.26mGy.cm Total DLP DATA REPOSITORY: All CT scans at this facility are submitted to the National Radiology Data Registry (NRDR) Dose Index Registry (DIR) with the [employer] (ACR). RADIATION OPTIMIZATION: All CT scans at this facility use at least one of these dose optimization techniques: automated exposure control; mA and/or kV adjustment per patient size (includes targeted exams where dose is matched to clinical indication); or iterative reconstruction.
--- NOTE | 2025-03-27 22:30 | RT.EKG_ITS ---
APPROVED REPORT Exam: Resting ECG Reason for Exam: [facility] Patient Location: E HR:74 bpm ECG Measurements Heart Rate 74 AXIS NJ 176 P 67 QRSd 137 QRS 28 QT 406 T 46 QTc 449 Conclusion Sinus rhythm...normal P axis, V-rate 60- 99 IVCD, consider RBBB...QRSd>120mS, terminal axis(90,270) Inferior infarct, old...Q >35mS, II III aVF Normal [place] Nonspecific ST-T changes There are no significant changes compared to prior EKG performed on 08/23/2024 at 11:16.
[2025-03-27] MEDS: Normal Saline 1,000 ML 1000 ML IV (22:35)
[2025-03-27 22:40] LABS: Abs Immature Grans 0.01 10^3/uL (0.0-0.06); Absolute Basophil Count 0.04 10^3/uL (0.0-0.2); Absolute Lymphocyte Count 2.77 10^3/uL (1.2-3.4); Absolute Monocyte Count 0.63 10^3/uL (0.1-0.8); Absolute Neutrophil Count 3.62 10^3/uL (1.2-6.7); Basophils % 0.6 %; Eosinophils % 1.4 %; HCT 40.5 % (40.0-50.0); HGB 13.3 g/dL (13.5-17.5); Immature Grans % 0.1 %; Lymphocytes % 38.6 %; MCH 27.7 pg (27.0-33.0); MCHC 32.8 % (32.0-36.0); MCV 84 fL (80-95); MPV 9.4 fL (8.0-11.0); Monocytes % 8.8 %; Neutrophils % 50.5 %; Platelet Count 272 10^3/uL (130-400); RDW 14.3 % (11.8-14.1); RDW-SD 44.1 fL; WBC 7.17 10^3/uL (4.4-10.8)
[2025-03-27 23:09] LABS: ALT 43 U/L (16-63); AST 33 U/L (15-37); Albumin 3.8 g/dL (3.4-5.0); Alkaline Phosphatase 98 U/L (46-116); Anion Gap 11.3 mmol/L (3-11); BUN 13 mg/dL (7-18); Bilirubin, Total 0.2 mg/dL (0.2-1.0); CO2 21.7 mmol/L (21.0-32.0); CREATININE 0.9 mg/dL (0.70-1.30); Calcium 8.4 mg/dL (8.5-10.1); Chloride 101 mmol/L (98-107); ETHANOL BLOOD 262.2 mg/dL (<10); Estimated GFR 97.78 (mL/min/1.73m2); Glucose 99 mg/dL (74-106); Magnesium 1.9 mg/dL (1.8-2.4); Potassium 3.4 mmol/L (3.5-5.1); Sodium 134 mmol/L (136-145); Total Protein 7.3 g/dL (6.4-8.2); Troponin I 33 ng/L (<or=76)
--- NOTE | 2025-03-27 23:28 | DI.[facility]_ITS ---
PROCEDURE INFORMATION: Exam: XR Chest Exam date and time: 03/27/2025 11:03 PM Age: 59 years old Clinical indication: Injury; Fall; Blunt trauma; Prior surgery; date: 6+ months: Open heart TECHNIQUE: Imaging protocol: Radiologic exam of the chest. Views: 1 view. COMPARISON: CT CHEST PE CTA 06/17/2024 3:18 AM FINDINGS: Tubes, catheters and devices: Cardiac leads superimposed over the chest. Lungs: No alveolar infiltrate. Pleural spaces: No pneumothorax. No pleural fluid collection. Heart/Mediastinum: Prominent cardiac silhouette. Left atrial appendage occlusion device. Bones/joints: Spinal degenerative changes. Prior median sternotomy. No acute fracture. IMPRESSION: 1. No acute infiltrate or congestive changes. 2. No acute fracture. Dictated and Authenticated by: Mingo Campuzano MD. Orderin Herbert Choudhary MD
--- NOTE | 2025-03-27 23:30 | DI.[facility]AD_ITS ---
PROCEDURE INFORMATION: Exam: XR Pelvis Exam date and time: 03/27/2025 11:02 PM Age: 59 years old Clinical indication: Injury; Fall; Blunt trauma pelvic region TECHNIQUE: Imaging protocol: Radiologic exam of the pelvis. Views: 1 or 2 view. COMPARISON: No relevant prior studies available. FINDINGS: Bones/joints: No acute fracture. No dislocation. Soft tissues: Unremarkable. IMPRESSION: No acute fracture. Dictated and Authenticated by: Mingo Campuzano MD. Orderin Herbert Choudhary MD
--- NOTE | 2025-03-27 23:37 | DI.[facility]AD_ITS ---
PROCEDURE INFORMATION: Exam: CT Head Without Contrast Exam date and time: 03/27/2025 10:44 PM Age: 59 years old Clinical indication: Injury or trauma; Fall; Blunt trauma (contusions or hematomas) TECHNIQUE: Imaging protocol: Computed tomography of the head without contrast. COMPARISON: No relevant prior studies available. FINDINGS: Brain: No brain edema. No intracranial hemorrhage. Cerebral ventricles: No ventriculomegaly. Paranasal sinuses: There is opacification of right maxillary sinus could be sinusitis or could be blood related to trauma, favoring sinusitis. Mastoid air cells: Unremarkable. Bones: Unremarkable. No acute fracture. Soft tissues: Unremarkable. IMPRESSION: 1. There is opacification of right maxillary sinus could be sinusitis or could be blood related to trauma, favoring sinusitis. 2. No acute brain findings. PROCEDURE INFORMATION: Exam: CT Cervical Spine Without Contrast Exam date and time: 03/27/2025 10:44 PM Age: 59 years old Clinical indication: Injury or trauma; Fall; Blunt trauma (contusions or hematomas) TECHNIQUE: Imaging protocol: Computed tomography of the cervical spine without contrast. COMPARISON: CT CHEST PE CTA 06/17/2024 3:18 AM FINDINGS: Bones: Multilevel neural foraminal narrowing secondary to degenerative change. No fracture. Lungs: Lung apices are normal. Soft tissues: Unremarkable. IMPRESSION: No fracture. Dictated and Authenticated by: Gabriel Sotomayor MD. Orderin Herbert Choudhary MD
[2025-03-28 00:01] LABS: Troponin I 32 ng/L (<or=76)
[2025-03-28 00:30] LABS: Bilirubin Negative (Negative); Blood Negative (Negative); Clarity Clear (Clear); Glucose Negative (Negative); Ketones Negative (Negative); Leukocyte Esterase Negative (Negative); Nitrite Negative (Negative); Urobilinogen 0.2 mg/dL (Up to 0.2)
[2025-03-28 05:43] VITALS: BP 179/91; PULSE 83; O2SAT 99
== END 2025-03-28 05:57 | disposition home or self-care (01) ==
PROVIDERS: Emergency Provider Emergency Medicine; PCP Nurse Practitioner Family
DX: S40.811A Abrasion of right upper arm, initial encounter (principal); S00.211A Abrasion of right eyelid and periocular area, initial encounter; F10.929 Alcohol use, unspecified with intoxication, unspecified; Z79.01 Long term (current) use of anticoagulants; W19.XXXA Unspecified fall, initial encounter
CPT/HCPCS: 99284 ×2; 36415; 80053; 93005; 96360; 70450; 71045; 72125; 72170; 80320; 81003; 83735; 84484; 85025; 93010